=== PATIENT | female | born 1955 ===

== ENCOUNTER 2025-01-22 11:00 | Inpatient (IN) | payer OTHER ==
[~2025-01-22] VITALS: Ht 61 cm; Wt 60.3 kg
[~2025-01-22 11:00] MED LIST: LANSOPRAZOLE 30 MG; LANSOPRAZOLE30 MG; MAXIMUM D3; MAXIMUM D3325 MCG; PEPCID AC20 MG; SIMVASTATIN 40 MG; SIMVASTATIN40 MG
[2025-01-22] MEDS ORDERED: PREVACID30 M1 PO (12:03)
[2025-01-22] MEDS ORDERED: NEURONTIN300 MG (12:03)
[2025-01-22] MEDS ORDERED: CRESTOR40 MG PO (12:04)
[2025-01-22] MEDS ORDERED: CYMBALTA (12:05)
[2025-01-30] MEDS ORDERED: BUPIVACAINE HCL/MPF 0.5% 30ML VIAL ONE (07:19)
[2025-01-30] MEDS ORDERED: POVIDONE-IODINE 118 ML BOTT TOP ONE (07:19)
[2025-01-30] MEDS ORDERED: DIBUCAINE 30 GM TUBE ONE (07:19)
[2025-01-30] MEDS ORDERED: HEMOSTATIC MATRIX 1 KIT KIT TOP ONE (07:19)
[2025-01-30] MEDS ORDERED: LIDOCAINE HCL 1%/EPINEPHRINE 20ML VIAL IJ ONE (07:19)
[2025-01-30] MEDS ORDERED: CEFTRIAXONE SODIUM 2,000 MG VIAL ONE ×2 (07:22→07:31)
[2025-01-30] MEDS ORDERED: METRONIDAZOLE/SODIUM CHLORIDE 500 MG/100 ML PIGGYBACK IV ONE ×2 (07:22→07:31)
[2025-01-30] MEDS ORDERED: MORPHINE SULFATE 4 MG/ML CARTRIDGE IV PRN (10:00)
[2025-01-30] MEDS ORDERED: RINGERS SOLUTION,LACTATED 1,000 ML IV SCH (10:00)
[2025-01-30] MEDS ORDERED: ONDANSETRON HCL 2 MG/ML VIAL IV PRN (10:00)
[2025-01-30] MEDS ORDERED: OxyCODONE HCL 5 MG TABLET (ROXICODONE) PO PRN (10:00)
[2025-01-30 11:31] LABS: BASO % 0.3 % (0.1-1.2); EOS # 0.03 (0.04-0.54); EOS % 0.3 % (0.7-7.0); LYMPH # 1.39 (1.18-3.74); LYMPH % 15.2 % (19.3-53.1); MEAN PLATELET VOLUME 9.50 fl (9.4-12.4); MONO # 0.68 (0.24-0.82); MONO % 7.4 % (4.7-12.5); NEUT # 7.01 (1.56-6.13); NEUT % 76.5 % (34.0-71.1); RED CELL DISTRIBUTION WIDTH 12.7 % (11.6-14.4)
[2025-01-30] MEDS ORDERED: MORPHINE SULFATE 4 MG/ML VIAL IV ONE (12:00)
[2025-01-30] MEDS ORDERED: SIMETHICONE 125 MG CAPSULE PO SCH (13:00)
[2025-01-30] MEDS ORDERED: HYOSCYAMINE SULFATE 0.125 MG TAB.SUBL SL SCH (13:00)
[2025-01-30] MEDS ORDERED: hydrALAZINE HCL 20 MG VIAL ONE (13:55)
[2025-01-30 14:00] VITALS: BP 103/65; O2SAT 95
[2025-01-30] MEDS ORDERED: ACETAMINOPHEN 500 MG GEL..CAP PO SCH (14:00)
[2025-01-30 17:00] VITALS: BP 101/62; O2SAT 96
[2025-01-30] MEDS ORDERED: GABAPENTIN 300 MG CAPSULE PO SCH (17:00)
[2025-01-30] MEDS ORDERED: CELECOXIB 200 MG CAPSULE PO SCH (17:00)
[2025-01-30] MEDS ORDERED: METOCLOPRAMIDE HCL 5 MG/ML VIAL IV SCH (17:00)
[2025-01-30] MEDS ORDERED: FAMOTIDINE/PF 20 MG/2 ML VIAL IV PUSH SCH (21:00)
[2025-01-31 01:43] VITALS: BP 92/52; O2SAT 99
[2025-01-31 06:46] LABS: BASO % 0.2 % (0.1-1.2); EOS # 0.01 (0.04-0.54); EOS % 0.2 % (0.7-7.0); LYMPH # 1.52 (1.18-3.74); LYMPH % 25.7 % (19.3-53.1); MEAN PLATELET VOLUME 9.70 fl (9.4-12.4); MONO # 0.60 (0.24-0.82); MONO % 10.1 % (4.7-12.5); NEUT # 3.77 (1.56-6.13); NEUT % 63.6 % (34.0-71.1); RED CELL DISTRIBUTION WIDTH 12.6 % (11.6-14.4)
[2025-01-31 07:37] LABS: BUN CREA RATIO 14.0 (7.0-25.0); CREATININE SERUM 0.65 mg/dL (0.55-1.02); GFR 90.11; GLUCOSE FASTING 90.0 mg/dL (65-100); OSMOLALITY SERUM 283.0 MOSM/KG (275-295)
[2025-01-31] MEDS ORDERED: LACTULOSE 20 G/30 ML BLIST.PACK PO SCH (09:00)
[2025-01-31] MEDS ORDERED: LACTOBACILLUS ACIDOPHILUS 1 CAP CAP PO SCH (09:00)
[2025-01-31 09:20] VITALS: BP 91/52; O2SAT 96
[2025-01-31] MEDS ORDERED: POTASSIUM CHLORIDE 20MEQ/100ML H2O PB IV NR (10:00)
[2025-01-31 16:00] VITALS: BP 96/54; O2SAT 95
[2025-01-31] MEDS ORDERED: AMINO ACIDS/PROTEIN HYDROLYS 30 ML BLIST.PACK PO SCH (17:00)
[2025-01-31] MEDS ORDERED: ENOXAPARIN SODIUM 40 MG/0.4 ML SYRINGE SUBCUTANEO SCH (17:00)
[2025-02-01 01:41] VITALS: BP 106/67; O2SAT 97
[2025-02-01 06:51] LABS: BASO % 0.4 % (0.1-1.2); EOS # 0.09 (0.04-0.54); EOS % 1.7 % (0.7-7.0); LYMPH # 1.95 (1.18-3.74); LYMPH % 36.4 % (19.3-53.1); MEAN PLATELET VOLUME 10.10 fl (9.4-12.4); MONO # 0.39 (0.24-0.82); MONO % 7.3 % (4.7-12.5); NEUT # 2.90 (1.56-6.13); NEUT % 54.0 % (34.0-71.1); RED CELL DISTRIBUTION WIDTH 12.8 % (11.6-14.4)
[2025-02-01 07:19] LABS: BUN CREA RATIO 16.0 (7.0-25.0); CREATININE SERUM 0.64 mg/dL (0.55-1.02); GFR 91.74; GLUCOSE FASTING 90.0 mg/dL (65-100); OSMOLALITY SERUM 291.0 MOSM/KG (275-295)
[2025-02-01 08:00] VITALS: BP 116/72; O2SAT 95
[2025-02-01] MEDS ORDERED: ROSUVASTATIN CALCIUM 20 MG TABLET PO SCH (09:00)
[2025-02-01] MEDS ORDERED: ENOXAPARIN SODIUM 40 MG/0.4 ML SYRINGE SUBCUTANEO SCH (09:00)
[2025-02-01] MEDS ORDERED: NAPH,MB-DB/K PH,MBDB 1 PKT PACKET PO STA (09:32)
[2025-02-01] MEDS ORDERED: POTASSIUM PHOS,M-BASIC-D-BASIC 3 MM/ML VIAL IV ONE (10:00)
== END 2025-02-01 16:47 | disposition home or self-care (01) | DRG 331 ==
LOC: O/R 01-30 06:00 → SURH 01-30 07:00
PROVIDERS: Internal Medicine Geriatric Medicine; ADMIT Colon & Rectal Surgery; ATTEND Colon & Rectal Surgery
PROC: 0DBP4ZZ Excision of Rectum, Percutaneous Endoscopic Approach (ICD-10-PCS; 2025-01-30)
PROC: 0DQP4ZZ Repair Rectum, Percutaneous Endoscopic Approach (ICD-10-PCS; 2025-01-30)
PROC: 0DJD8ZZ Inspection of Lower Intestinal Tract, Via Natural or Artificial Opening Endoscopic (ICD-10-PCS; 2025-01-30)
PROC: 0DTN4ZZ Resection of Sigmoid Colon, Percutaneous Endoscopic Approach (ICD-10-PCS; principal; 2025-01-30 07:00)
DX: K62.3 Rectal prolapse (principal); N81.6 Rectocele; K59.09 Other constipation; K58.1 Irritable bowel syndrome with constipation; E78.5 Hyperlipidemia, unspecified; K64.2 Third degree hemorrhoids